=== PATIENT | female | born 1965 | race Caucasian/White ===

== ENCOUNTER 2019-09-09 11:18 | Emergency (ER) | payer OTHER, SELFPAY ==
--- NOTE | ~2019-09-09 | XR_ITS ---
XR finger 4th LT min 2V DATE: 09/09/2019 12:02 INDICATION: Distal tip of digit, with ami. TECHNIQUE: 4 views COMPARISON: None FINDINGS: There is a soft tissue laceration at the distal lateral aspect of the digit. No radiopaque soft tissue foreign body is noted. No fracture, dislocation, periosteal reaction or bone destruction. IMPRESSION: Small distal soft tissue laceration Reviewed, dictated and finalized at location A.
[2019-09-09 11:23] VITALS: BP 124/84; PULSE 76; RESP 18; TEMP 36.4; O2SAT 97
[2019-09-09] MEDS: TETANUS,DIPHTHERIA,AC PERTUSSIS ADULT (0.5 ML) BOOSTRIX IM (11:51)
--- NOTE | 2019-09-09 12:07 | ED.GENADULT ---
HPI - General Adult General Chief complaint: Wound/Laceration <EZRA Birch Last Filed: 09/09/19 13:06> Stated complaint: left finger lac <EZRA Birch Filed: 09/09/19 13:06> Time Seen by Provider: 09/09/19 11:25 <EZRA Birch Last Filed: 09/09/19 13:06> Source: patient <EZRA Birch Filed: 09/09/19 13:06> Mode of arrival: ambulatory <EZRA Birch Filed: 09/09/19 13:06> Limitations: no limitations <EZRA Birch Filed: 09/09/19 13:06> History of Present Illness HPI narrative: Patient is a 54-year-old female who presents with laceration of the left distal ring finger that occurred while using a hedge tremor patient notes her tetanus is not up-to-date notes mild aching pain worse with touch and activity denies radicular symptoms or paresthesias presents per private vehicle right after the injury occurred has not had anything for pain <EZRA Birch Last Filed: 09/09/19 13:06> Related Data Home medications: Home Medications Medication Instructions Recorded Confirmed multivitamin 1 tablet PO DAILY 07/12/19 07/12/19 omeprazole 10 mg PO DAILY 09/09/19 <EZRA Birch Last Filed: 09/09/19 13:06> Allergies/adverse reactions: Allergies Allergy/AdvReac Type Severity Reaction Status Date / Time morphine Allergy Unknown itchy hives Verified 09/09/19 11:33 Penicillins Allergy Unknown itchy hives Verified 09/09/19 11:33 <EZRA Birch Last Filed: 09/09/19 13:06> Review of Systems Review of Systems: Narrative: CONSTITUTIONAL: Denies fever, chills, or sweats. EYES: Denies redness, or discharge. ENT: Denies rhinorrhea, congestion, sore throat, or otalgia RESPIRATORY: Denies cough or dyspnea. SKIN: positive for laceration and swelling MUSCULOSKELETAL: Positive for finger pain NEUROLOGIC: Denies numbness or tingling <EZRA Birch Last Filed: 09/09/19 13:06> [facility] Family History Family History: Family History (Updated 11/29/15 @ 23:19 by DOCTOR UNKNOWN) Father Hypertension Family history of diabetes mellitus in first degree relative Family history of malignant neoplasm of brain Mother Family history of lung cancer <Carlos Lucero PA-C - Last Filed: 09/09/19 13:06> Social History Social History: Social History Smoking status: Never smoker Alcohol intake: never Substance use: never Substance use type: does not use Gender identity (if verbalized by the patient): Female <Carlos Lucero PA-C - Last Filed: 09/09/19 13:06> Exam Narrative: Exam Narrative: GENERAL: Well-appearing, well-nourished, and in no acute distress. HEAD: Normocephalic, atraumatic. EYES: PERRLA and EOMI. EXTREMITIES: Normal range of motion. No edema. Patient with irregular laceration of the palmar aspect of the distal left ring finger SKIN: Warm, dry, no rash. NEURO: No focal deficits. Alert and oriented x3. Cranial nerves II through XII grossly intact PSYCH: Normal mood and affect. <Carlos Lucero PA-C - Last Filed: 09/09/19 13:06> Course Vital Signs Vital signs: Vital Signs Temperature 97.5 F L 09/09/19 11:23 Pulse Rate 76 09/09/19 11:23 Respiratory Rate 18 09/09/19 11:23 Blood Pressure 124/84 09/09/19 11:23 Pulse Oximetry 97 09/09/19 11:23 Temperature 97.5 F L 09/09/19 11:23 Pulse Rate 76 09/09/19 11:23 Respiratory Rate 18 09/09/19 11:23 Blood Pressure 124/84 09/09/19 11:23 Pulse Oximetry 97 09/09/19 11:23 <Carlos Lucero PA-C - Last Filed: 09/09/19 13:06> Vital Signs Temperature 97.5 F L 09/09/19 11:23 Pulse Rate 76 09/09/19 11:23 Respiratory Rate 18 09/09/19 11:23 Blood Pressure 124/84 09/09/19 11:23 Pulse Oximetry 97 09/09/19 11:23 Temperature 97.5 F L 09/09/19 11:23 Pulse Rat
== END 2019-09-09 13:10 | disposition home or self-care (01) ==
PROVIDERS: Emergency Provider Emergency Medicine; PCP Family Medicine
DX: S61.215A Laceration without foreign body of left ring finger without damage to nail, initial encounter (principal); W29.3XXA Contact with powered garden and outdoor hand tools and machinery, initial encounter; Z23 Encounter for immunization
CPT/HCPCS: 12001; 73140; 90471; 90715; 99283

== ENCOUNTER 2020-02-01 15:03 | Outpatient (CLI) | payer OTHER, SELFPAY ==
--- NOTE | ~2020-02-01 | US_ITS ---
EXAMINATION: US soft tissue head and neck DATE: 02/01/2020 15:30 INDICATION: Left neck mass. TECHNIQUE: Multiple grayscale and Doppler ultrasound images of the neck were obtained. COMPARISON: None FINDINGS: There is a normal subcutaneous lymph node in left posterior neck in the patient's area of c oncern. IMPRESSION: 1. Normal subcutaneous lymph node in left posterior neck in the patient's area of concern. Reviewed, dictated and finalized at location A.
== END 2020-02-01 15:04 | disposition home or self-care (01) ==
PROVIDERS: PCP Family Medicine; Visit Provider Physician Assistant
DX: R22.1 Localized swelling, mass and lump, neck (principal)
CPT/HCPCS: 76536

== ENCOUNTER → 2020-10-09 10:45 | Outpatient (CLI) | payer OTHER, SELFPAY ==
--- NOTE | ~2020-10-09 | MM_ITS ---
EXAMINATION: MM screening deborah BI w krupa HISTORY: Screening mammogram TECHNIQUE: Craniocaudal and mediolateral oblique 3-D tomosynthesis images were obtained and synthetic 2-D images were generated. CAD analysis was submitted and interpreted. COMPARISON: 07/29/2016, 05/30/2015 bilateral digital screening mammogram examinations BREAST PARENCHYMAL COMPOSITION: There are scattered areas of fibroglandular density. FINDINGS: Stable mild fibroglandular asymmetry. Scattered bilateral benign calcifications. 3.5 x 4.5 mm circumscribed opacity in the lower outer right breast at mid to posterior depth. There i s no evidence of suspicious mass, calcification, or architectural distortion to suggest malignancy in either breast. There has been no suspicious interval change. IMPRESSION: 1. No mammographic evidence of malignancy. 2. Recommend routine screening mammography in one year. BI-RADS Category 2: Benign finding(s). Reviewed, dictated and finalized at location A.
== END ==
PROVIDERS: Visit Provider Obstetrics & Gynecology
DX: Z12.31 Encounter for screening mammogram for malignant neoplasm of breast (principal)
CPT/HCPCS: 77063; 77067

== ENCOUNTER 2021-04-15 12:21 | Emergency (ER) | payer OTHER, SELFPAY ==
--- NOTE | ~2021-04-15 | XR_ITS ---
EXAMINATION: XR foot LT min 3V EXAM DATE: 04/15/2021 12:40 INDICATION: trauma yesterday/lateral heel pain. Initial encounter. TECHNIQUE: Left foot dorsoplantar, lateral and oblique projections obtained and reviewed. There is n o prior study for comparison. FINDINGS: Left metatarsal bones unremarkable. There are no acute fractures or dislocations identifi ed. There is no subcutaneous gas. The soft tissue is unremarkable. There are no radiopaque foreig n bodies. IMPRESSION: XR foot LT min 3V exam without acute osseous findings. Reviewed, dictated and finalized at location B. 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
[2021-04-15 12:30] VITALS: BP 129/93; PULSE 103; RESP 18; TEMP 37.1; O2SAT 98
--- NOTE | 2021-04-15 12:38 | ED.LOWEXIN ---
HPI - Extremity Injury (Lower) General Chief Complaint: Upper Respiratory Infection Stated Complaint: Body Aches,Headache,Lt Foot Pain Time Seen by Provider: 04/15/21 12:32 Source: family and RN notes reviewed Mode of arrival: ambulatory Limitations: no limitations History of Present Illness HPI Narrative: Paola is a 55-year-old female patient who ambulated into the [facility] with complaint of left heel pain. Patient states she was walking her 2 dogs yesterday and a stray dog came over. Patient states she was kicking at the other dog to leave her alone. Patient states she was unable to walk until this morning. Patient also has chills, body aches, and joint pain. This started yesterday. Patient has been taking Aleve and NyQuil. Patient states her daughter was diagnosed with influenza A on Wednesday Related Data Home Medications Medication Instructions Recorded Confirmed estradiol [Divigel] 1 DAILY 04/15/21 Allergies Allergy/AdvReac Type Severity Reaction Status Date / Time morphine Allergy Unknown itchy hives Verified 04/15/21 12:35 Penicillins Allergy Unknown itchy hives Verified 04/15/21 12:35 Review of Systems Review of Systems: CONSTITUTIONAL: = body aches, fever, chills, or sweats. EYES: Denies visual changes, redness, or discharge. ENT: Denies rhinorrhea, congestion, sore throat, or otalgia. CARDIOVASCULAR: Denies chest pain, palpitations, or edema. RESPIRATORY: Denies cough or dyspnea. GASTROINTESTINAL: Denies abdominal pain, nausea, vomiting, or diarrhea. GENITOURINARY: Denies dysuria or hematuria. SKIN: Denies rash, itching, or wounds. MUSCULOSKELETAL: Denies back pain, + left heel pain, or myalgia. NEUROLOGIC: Denies headache, numbness, tingling, or weakness. PSYCH: Denies depression or anxiety. All systems reviewed & are unremarkable except as noted in HPI and below PMFSH Past Medical History Medical History Constipation Heartburn Hot flashes Rash Surgical History Surgical History History of bladder surgery History of partial hysterectomy Family History Family History Father Hypertension Family history of diabetes mellitus in first degree relative Family history of malignant neoplasm of brain Mother Family history of lung cancer Social History Social History Smoking status: Never smoker Alcohol intake: current Substance use: never Substance use type: does not use 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 Gender identity (if verbalized by the patient): Female Comments At time of signature, I have reviewed and agree with nursing past medical, surgical, social and family history unless otherwise noted. Please see nursing chart for further information. There is no relevant family history pertinent to the presenting complaint Exam Narrative: GENERAL: Well-appearing, well-nourished, and in no acute distress. HEAD: Normocephalic, atraumatic. EYES: EOMI. No redness or drainage. Conjunctivae normal. ENT: Mucous membranes pink and moist. Nares clear. No rhinorrhea. TMs normal bilaterally. Throat normal. Uvula midline. NECK: Normal AROM. Supple. No lymphadenopathy. CHEST: No respiratory distress. Clear to auscultation. HEART: Regular rate and rhythm. No murmur appreciated. Normal peripheral pulses. ABDOMEN: Soft, nontender, nondistended, normal active bowel sounds. MUSCULOSKELETAL: No bony tenderness. EXTREMITIES: Normal range of motion. 1+ edema to BLE. SKIN: Warm, dry, no rash. Capillary refill normal. Normal skin turgor. NEURO: No focal deficits. Alert and oriented x3. Gait steady. PSYCH: Normal affect. No signs of depression or anxiety. Course Vital Signs Vital signs: Vital Signs Temperature 37.1 C 04/15/21 12:30 Pulse Rate
== END 2021-04-15 13:03 | disposition home or self-care (01) ==
PROVIDERS: Emergency Provider Nurse Practitioner Family; PCP Family Medicine
DX: J11.1 Influenza due to unidentified influenza virus with other respiratory manifestations (principal); S90.32XA Contusion of left foot, initial encounter; X58.XXXA Exposure to other specified factors, initial encounter; R12 Heartburn
CPT/HCPCS: 73630; 87804; 99213; G0463

== ENCOUNTER 2021-05-12 01:54 | Day surgery (SDC) | payer OTHER, SELFPAY ==
[2021-04-21 13:36] VITALS: BMI 36.3
--- NOTE | 2021-04-21 13:43 | PC.NURSE ---
Addendum entered by Renee Christianson RN 05/05/21 13:42: PT TO ARRIVE AT 0600 ON 05/12/21 FOR OR AT 0730. TO STOP VITAMINS/SUPPLEMENTS 05/08/21. Original Note: Report to the Outpatient Waiting Room, entrance under the green pavilion located off [facility], at time __1000 on date _04/24/21 . OR Time: ___1200 . - You and your visitor will be asked a series of questions to screen for COVID 19 for your protection. - A mask is required within the hospital. - Only one visitor is allowed at this time. Patient visitors will be guided where to wait when not with patient. Preoperative COVID Testing Requirements: No COVID Test needed if: (proof is required; if not received patient will have Rapid Test prior to entry) - Patient has received COVID Vaccine at least 14 days prior to procedure date or - Patient has positive COVID test result within last 90 days of surgery date. COVID Test needed if above criteria is not met If not COVID vaccinated a COVID test must be conducted within 72 hours of surgery and patient is asked to isolate self from time of testing until procedure. You will go to the [facility] for your COVID testing. The [facility] [facility] is located at the corner of [address] from [facility]. You will only be called if COVID results are positive and your surgeon may reschedule your elective surgery date. Patients may have clear liquids (water, carbonated beverages, clear teas, apple juice) until 3 hours prior to surgery with a maximum of 20 ounces. - No food from midnight until time of surgery - Infants may have breast milk until 4 hours before surgery, formula 6 hours prior to surgery. - Children will be allowed to drink immediately following surgery. If applicable, please bring a bottle or sippy cup to assist with drinking. Juice, water, soda, and popsicles are readily available. For infants on formula, please bring formula the day of surgery. Pacifiers are allowed. Take the following medications with a SIP of water the morning of surgery: __N/A Medications to discontinue per physician __ALL VITAMINS & SUPPLEMENTS OF TODAY Date to take last dose____04/21/21 Please no make-up, nail nepali, hairspray, perfume, deodorant, or body powder the day of surgery. No jewelry (including any body piercings) or valuables the day of surgery, leave them at home. Please take a shower or bath the night before, or the morning of, surgery with an antibacterial soap. Wear comfortable, loose fitting clothing. Children are encouraged to wear pajamas. - Jewelry must be removed prior to entering the operating room. Rings and piercings that are not removed may be cut off. - The hospital will not accept responsibility for valuables. - Please leave all valuables, including medications, at home the day of surgery. If you are going home after surgery, a licensed solo truck driver must drive you home. - NO public transportation without another adult. - We recommend that an adult stay with you for 24 hours following discharge. - We also recommend that you do not drive, make important decision, drink alcoholic beverages, or take any drugs that were not prescribed by your health care provider for at least 24 hours after your discharge time. For Pediatric surgeries, we recommend two adults accompany the child home (only one inside the building at this time). Follow any additional instructions given to you from your surgeon. [facility] AM OF SURGERY Telephone instructions given to ____PT and asked if any additional questions and then verbalized understanding. Patient advised to call surgeon office or pre surgery nurse liaison [phone] if any additional questions.
--- NOTE | 2021-05-05 13:40 | PC.NURSE ---
Pt denies any medication changes since initial interview. States symptoms of influenza A have resolved. Currently has an inflamed tendon on her left heel due to breaking up a dog attack. Pt denies being bitten or having any open wounds. New instructions reviewed with pt. Pt denies further questions at this time.
[2021-05-12] VITALS (8 sets, daily range): BP systolic 117–145; BP diastolic 65–86; PULSE 49–78; RESP 12–14; TEMP 36.1; O2SAT 98–100
[2021-05-12] MEDS: ACETAMINOPHEN 500 MG TABLET 1000 MG PO (06:47)
[2021-05-12] MEDS: LACTATED RINGERS 1,000 ML 30 ML IV CONT ×2 (07:00→08:38)
[2021-05-12] MEDS: KETOROLAC 15 MG/ML VIAL (*BKC) IV PUSH (07:04)
--- NOTE | 2021-05-12 07:08 | WPDANESEPPF ---
Anes - Initial Pre Proc Eval Procedure: Operation Date: 05/12/21 07:30 Proposed Procedures p Open Umbilical Hernia Repair With Mesh - Germaine Wade MD Date/Time: 05/12/21 07:08 Surgeon: Germaine Wade MD Pre Op Diagnosis: umb hernia Patient Data Age: 55 Gender: F Height: 1.68 m Weight: 104 kg Last Vital Signs Temp 36.1 C L 05/12/21 06:59 Pulse 78 05/12/21 06:59 BP 131/72 05/12/21 06:59 Pulse Ox 98 05/12/21 06:59 Allergies Allergy/AdvReac Type Severity Reaction Status Date / Time morphine Allergy Unknown itchy hives Verified 05/12/21 06:23 Penicillins Allergy Unknown itchy hives Verified 05/12/21 06:23 Home Medications Medication Instructions Recorded Confirmed Type estradiol [Divigel] 1 packet DAILY 04/15/21 05/12/21 History glucosamine-chondroitin [Osteo 1 tablet PO QAM 04/21/21 05/12/21 History Bi-Flex] multivitamin [Multi-Vitamin] 1 tablet PO DAILY 04/21/21 05/12/21 History multivitamin with minerals 1 tablet PO DAILY 04/21/21 05/12/21 History [Hair,Skin and Nails] omeprazole 20 mg PO DAILY 04/21/21 05/12/21 History Patient hx anesthesia problems: none Family hx anesthesia problems: none Results Review: All pre-operative results and documents have been reviewed as part of the pre-operative evaluation. 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 Informed Consent: The patient's anesthetic plan and its attendant risks and benefits were discussed with the patient/family/POA. Questions were solicited and answers provided to the satisfaction of the patient/family/POA.
--- NOTE | 2021-05-12 07:22 | PM.IMHP ---
H&P: HPI History of Present Illness Date/Time: 05/12/21 07:22 Patient reports a two year history of supra-umbilical bulging with recent development of associated pain- worse to palpation, with heavy lifting, and bending at the waste. Chief Complaint: umbilical hernia Review of Systems Review of Systems: All systems reviewed & are unremarkable except as noted in HPI and below PMFSH Past Medical History Medical History Constipation Heartburn Hot flashes Rash Surgical History Surgical History History of bladder surgery History of partial hysterectomy Family History Family History Father Hypertension Family history of diabetes mellitus in first degree relative Family history of malignant neoplasm of brain Mother Family history of lung cancer Social History Social History Smoking status: Never smoker Second hand tobacco smoke exposure: No Alcohol intake: current Substance use: never Substance use type: does not use 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: with family 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 Gender identity (if verbalized by the patient): Female Spiritual care concerns: No Meds Home Medications and Allergies Home Medications Medication Instructions Recorded Confirmed Type estradiol [Divigel] 1 packet DAILY 04/15/21 05/12/21 History glucosamine-chondroitin [Osteo 1 tablet PO QAM 04/21/21 05/12/21 History Bi-Flex] multivitamin [Multi-Vitamin] 1 tablet PO DAILY 04/21/21 05/12/21 History multivitamin with minerals 1 tablet PO DAILY 04/21/21 05/12/21 History [Hair,Skin and Nails] omeprazole 20 mg PO DAILY 04/21/21 05/12/21 History Allergies Allergy/AdvReac Type Severity Reaction Status Date / Time morphine Allergy Unknown itchy hives Verified 05/12/21 06:23 Penicillins Allergy Unknown itchy hives Verified 05/12/21 06:23 Vital Signs Vital Signs - 24 hr 05/12/21 06:59 Temperature 36.1 C L Pulse Rate 78 Blood Pressure 131/72 Pulse Oximetry 98 Exam Const: General: cooperative, comfortable and no acute distress Nutritional Appearance: obese Orientation/consciousness: patient oriented x3 Resp: Auscultation: clear to auscultation bilaterally Cardio: Rate: regular rate Rhythm: regular rhythm GI: Inspection: normal to inspection and distended GI Palp: Yes Soft to palpation, Yes Tenderness to palpation present (GI), No Guarding due to palpation present (GI) and No Rigid due to palpation Other: supraumbilical hernia - moderate, reducible Assessment and Plan Assessment and plan (1) Umbilical hernia: Qualifiers: Obstruction and gangrene presence: without obstruction or gangrene Qualified Code(s): K42.9 - Umbilical hernia without obstruction or gangrene Code(s): K42.9 - Umbilical hernia without obstruction or gangrene Status: Acute Assessment and Plan: will setup for repair c mesh (2) BMI 36.0-36.9,adult: Code(s): Z68.36 - Body mass index [BMI] 36.0-36.9, adult Status: Acute Assessment and Plan: increased surgical risk, lifestyle and dietary modifications
--- NOTE | 2021-05-12 07:25 | WPDHPUPDATE1 ---
History and Physical Update Update Date/Time: 05/12/21 07:25 History and Physical has been reviewed, including an updated exam of the patient. There are NO changes in the patient's condition. Risks, benefits, and alternatives have been discussed and questions answered. Patient agrees to proceed with procedure.
[2021-05-12] MEDS: ceFAZolin 2 GM/D5W 50 ML 2 GM/50 ML BAG IVPB (07:32)
[2021-05-12] MEDS: BUPIVACAINE/EPINEPHRINE 0.5% 10 ML VIAL 30 ML INFILTRATE (07:32)
--- NOTE | 2021-05-12 08:44 | W.PM.PROC2 ---
Procedure Note - Detailed Date of Procedure 05/12/21 Pre-op Diagnosis incarcerated umbilical hernia Post-op Diagnosis same Procedure Performed repair of incarcerated umbilical hernia with 4.3 cm Ventralex patch in the underlay position Surgeon Germaine Wade MD Anesthesia general Indications 55-year-old female presenting to the office with a moderate-sized incarcerated umbilical hernia. The patient reports that the hernia has been slowly enlarging and is now quite symptomatic. Findings Incarcerated umbilical hernia with preperitoneal fat and omentum Description of Procedure The patient was taken to the operating room placed in the supine position. After adequate induction of general anesthesia, the patient was prepped and draped in the normal sterile fashion. A time-out was then done to verify the patient's identity, as well as the procedure being performed. I began by localizing the area around the umbilicus. I then made a curvilinear incision in the infraumbilical fold. This was taken down to level fascia. I then was able to bluntly dissect around the umbilicus. I then carefully dissected the umbilicus off the underlying fascia. I then noted a moderatel defect with incarcerated omentum and preperitoneal fat. I was able to mobilize the incarcerated tissue and reduce it back into the abdominal cavity. This left an approximately 2 cm defect. I then placed a 4.3 cm round piece of ventralex mesh in the underlay position. This was noted to have good, wide local coverage of the defect. I then closed this defect primarily with interrupted 0 Ethibond suture over the underlay mesh repair. I then reapproximated the umbilicus to the fascia with a 3 0 Vicryl U-stitch. The subcutaneous tissue was then closed with 3 0 Vicryl suture. The skin was closed with 4 0 Monocryl subcuticular suture. Dermabond was then placed on the wound. The patient tolerated the procedure well was extubated in the operating room postop. She will be transferred to the recovery room in stable condition. Implants 4.3 cm Ventralex patch in the underlay position Estimated Blood Loss 5 Drains No Packing No Pathology none sent Complications No immediate complications Condition stable Disposition PACU
[2021-05-12] MEDS: fentaNYL CITRATE INJ (*CRX) 100 MCG/2 ML VIAL 25 MCG IV PUSH ×4 (09:08→09:24)
[2021-05-12] MEDS: oxyCODONE HCL (*CRX) 5 MG TAB IR PO (09:55)
== END 2021-05-12 10:50 | disposition home or self-care (01) ==
PROVIDERS: PCP Family Medicine; Visit Provider Surgery
PROC: (CPT 49587; principal; 2021-05-12 07:30)
DX: K42.0 Umbilical hernia with obstruction, without gangrene (principal); E66.9 Obesity, unspecified; Z68.37 Body mass index [BMI] 37.0-37.9, adult
CPT/HCPCS: 49587; A9270; J0330; J0690; J1885; J2250; J2405; J2704; J3010; J7120

== ENCOUNTER → 2021-10-20 15:12 | Outpatient (CLI) | payer OTHER, SELFPAY ==
--- NOTE | ~2021-10-20 | XR_ITS ---
XR elbow LT min 3V DATE: 10/20/2021 15:41 INDICATION: Left elbow pain TECHNIQUE: 4 views COMPARISON: None FINDINGS: No fracture or dislocation or joint effusion. No periosteal reaction or bone destruction. IMPRESSION: Negative Reviewed, dictated and finalized at location A. IMPRESSION: Negative
--- NOTE | ~2021-10-20 | XR_ITS ---
XR elbow RT min 3V DATE: 10/20/2021 15:40 INDICATION: Right elbow pain TECHNIQUE: 4 views COMPARISON: None FINDINGS: No fracture or dislocation, periosteal reaction or bone destruction. No joint effusion. IMPRESSION: Negative Reviewed, dictated and finalized at location A. IMPRESSION: Negative
== END ==
PROVIDERS: PCP Family Medicine; Visit Provider Physician Assistant
DX: M25.521 Pain in right elbow (principal); M25.522 Pain in left elbow
CPT/HCPCS: 73080

== ENCOUNTER 2021-11-05 10:23 | Emergency (ER) | payer OTHER, SELFPAY ==
--- NOTE | ~2021-11-05 | XR_ITS ---
EXAMINATION: XR knee RT min 4V DATE: 11/05/2021 11:03 INDICATION: Right knee pain TECHNIQUE: Four views of the right knee were obtained. COMPARISON: None. FINDINGS: Alignment is normal. No fracture or osteochondral lesion. There is mild tricompartmental os teoarthritis characterized by tiny marginal osteophytes. No joint effusion/synovitis. Soft tissues a re unremarkable. IMPRESSION: 1. No acute osseous abnormality. Reviewed, dictated and finalized at location B.
[2021-11-05 10:35] VITALS: BP 139/80; PULSE 75; RESP 18; TEMP 36.3; O2SAT 99
--- NOTE | 2021-11-05 10:41 | ED.LOWEXIN ---
HPI - Extremity Injury (Lower) General Chief Complaint: Extremity Injury, Lower Stated Complaint: rt knee injury Time Seen by Provider: 11/05/21 11:18 Source: patient and RN notes reviewed Mode of arrival: ambulatory Limitations: no limitations History of Present Illness HPI Narrative: 56-year-old female presents to the [facility] with complaints of right knee pain. states that she fell (ground level) in the mud/garden yesterday. Patient reports a twisting injury of the right knee. No bruising. No swelling noted. No fluctuance/effusion. Onset (ago): day(s) (1) Related Data Home Medications Medication Instructions Recorded Confirmed glucosamine-chondroitin 250 mg-200 1 tablet PO QAM 04/21/21 11/05/21 mg tablet (Osteo Bi-Flex) multivitamin 1 tablet PO DAILY 04/21/21 11/05/21 omeprazole 20 mg capsule,delayed 20 mg PO DAILY 04/21/21 11/05/21 release Allergies Allergy/AdvReac Type Severity Reaction Status Date / Time morphine Allergy Unknown itchy hives Verified 11/05/21 10:42 Penicillins Allergy Unknown itchy hives Verified 11/05/21 10:42 Review of Systems Review of Systems: All systems reviewed & are unremarkable except as noted in HPI and below Constitutional: Constitutional: Reports no additional constitutional complaints, Denies chills and Denies fever(s) Eyes: Eyes: Reports no additional eye complaints ENT: Reports system reviewed and no additional complaints, except as documented Cardiovascular: Cardiovascular: Reports no additional cardiovascular complaints Respiratory: Respiratory: Reports no additional respiratory complaints Gastrointestinal: Gastrointestinal: Reports no additional gastrointestinal complaints Musculoskeletal: Musculoskeletal: Reports as per HPI and Reports arthralgias (right knee) Integumentary/Breasts: Skin/Breast: Reports system reviewed and no additional complaints, except as docu Neurologic: Reports system reviewed and no additional complaints, except as documented Psychiatric: Psychiatric: Reports no additional psychiatric complaints Allergic/Immunologic: Allergic/Immunologic: Reports no additional allergic/immunologic complaints PMFSH Past Medical History Medical History Constipation Heartburn Hot flashes Rash Surgical History Surgical History H/O umbilical hernia repair 05/12/21 w mesh History of bladder surgery History of partial hysterectomy Family History Family History Father Hypertension Family history of diabetes mellitus in first degree relative Family history of malignant neoplasm of brain Mother Family history of lung cancer Social History Social History Second hand tobacco smoke exposure: No Alcohol intake: current Substance use: never Substance use type: does not use 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 There is no relevant family history pertinent to the patient complaint. Exam Const: General: healthy appearing, no acute distress and alert Nutritional Appearance: well nourished Orientation/consciousness: patient oriented x3 Limitations: no limitations HENMT: Head: normal to inspection Ears: external ears normal Eyes: General: appearance normal, both eyes and all related structures Pupils: Equal, round and reactive pupils present Neck: Neck: normal visual inspection, no lymphadenopathy and no meningeal signs Chest: Chest palpation & inspection: normal inspection of the chest Resp: Effort & Inspection
== END 2021-11-05 11:28 | disposition home or self-care (01) ==
PROVIDERS: Emergency Provider Nurse Practitioner; PCP Family Medicine
DX: S83.91XA Sprain of unspecified site of right knee, initial encounter (principal); W19.XXXA Unspecified fall, initial encounter; M17.11 Unilateral primary osteoarthritis, right knee; R12 Heartburn
CPT/HCPCS: 73564; 99213; G0463

== ENCOUNTER → 2021-12-05 15:19 | Outpatient (CLI) | payer OTHER, SELFPAY ==
--- NOTE | ~2021-12-05 | MM_ITS ---
EXAMINATION: MM screening [facility] BI w krupa HISTORY: Screening TECHNIQUE: Craniocaudal and mediolateral oblique 3-D tomosynthesis images were obtained and synthetic 2-D images were generated. CAD analysis was submitted and interpreted. COMPARISON: Comparison to multiple prior studies sequentially, with oldest reviewed study dated 05/2009. BREAST PARENCHYMAL COMPOSITION: There are scattered areas of fibroglandular density. FINDINGS: There is no evidence of suspicious mass, calcification, or architectural distortion to sugg est malignancy in either breast. There has been no suspicious interval change. IMPRESSION: 1. No mammographic evidence of malignancy. 2. Recommend routine screening mammography in one year. BI-RADS Category 1: Negative Reviewed, dictated and finalized at location A.
== END ==
PROVIDERS: PCP Family Medicine; Visit Provider Family Medicine
DX: Z12.31 Encounter for screening mammogram for malignant neoplasm of breast (principal)
CPT/HCPCS: 77063; 77067

== ENCOUNTER → 2022-06-11 14:38 | Outpatient (CLI) | payer OTHER, SELFPAY ==
--- NOTE | ~2022-06-11 | MR_ITS ---
EXAMINATION: MR foot LT wo con DATE: 06/11/2022 15:13 INDICATION: Lateral left midfoot pain with degenerative joint disease TECHNIQUE: Magnetic resonance imaging (MRI) of the left mid/hindfoot was performed without intravenou s contrast. Sequences included sagittal, coronal, and axial proton-density weighted fast spin echo wi thout and with fat saturation. COMPARISON: None. FINDINGS: Medial ankle ligaments: Deep and superficial deltoid ligaments as well as the spring ligament are normal. Lateral ankle ligaments: The anterior and posterior inferior tibiofibular ligaments are normal. The anterior talofibular, calc aneofibular and posterior talofibular ligaments are normal. Tendons: Tiny enthesophytes at the calcaneal insertion of the otherwise normal Achilles tendon. There is mild increased fluid signal along the peroneus longus tendon beginning at the level of the distal calcaneu s and extending across the peroneal sulcus at the plantar aspect of the cuboid where the tendon appea rs mildly thickened consistent with mild tenosynovitis and mild tendinopathy without discrete tear. T here is mild tendinopathy of the peroneus brevis tendon with longitudinal split tearing seen at the l evel of the distal tip of the fibula extending at least 3.5 cm distally. The tibialis anterior and ex tensor hallucis longus and extensor digitorum longus tendons are normal. The tibialis posterior, flex or digitorum longus and flexor hallucis longus tendons are normal. Plantar fascia: There is thickening and mild increased signal of the plantar aponeurosis. There is mild marrow edema associated with a small plantar calcaneal spur at its calcaneal origin. Findings consistent with mild acute on chronic plantar fasciitis/enthesitis. Bones/other: Bone alignment is normal. No fracture or pathologic marrow replacing process. Minimal to mild osteoar thritis at the tarsal metatarsal joints. Lisfranc ligament complex is normal. Fluid: Physiologic amount fluid in the joint spaces. No other abnormal fluid collections. IMPRESSION: 1. Cuboid marlon lesion with mild tenosynovitis and tendinopathy of the peroneus longus tendon center ed at the peroneal sulcus of the cuboid. 2. Mild peroneus brevis tendinopathy with longitudinal split tearing extending short distance distal from the level of the tip of the lateral malleolus. 3. Mild acute on chronic plantar fascitis/enthesitis. Reviewed, dictated and finalized at location A. 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 Cuboid marlon lesion with mild tenosynovitis and tendinopathy of the peroneu s longus tendon centered at the peroneal sulcus of the cuboid. 2. Mild peroneus brevis tendinopathy with longitudinal split tearing extending short distance distal from the level of the tip of the lateral malleolus. 3. Mild acute on chronic plantar fascitis/enthesitis.
== END ==
PROVIDERS: PCP Family Medicine; Visit Provider Podiatrist Foot & Ankle Surgery
DX: M19.079 Primary osteoarthritis, unspecified ankle and foot (principal); M65.9 Synovitis and tenosynovitis, unspecified; M77.52 Other enthesopathy of left foot and ankle
CPT/HCPCS: 73718

== ENCOUNTER 2022-07-31 00:50 | Day surgery (SDC) | payer OTHER, SELFPAY ==
[2022-07-21 13:39] VITALS: BMI 35.6
--- NOTE | 2022-07-21 13:54 | PC.NURSE ---
Report to the Outpatient Waiting Room, entrance under the green pavilion located off [facility], at time _0630am on date _07/31/22 . Planned Procedure Time: _0830am . Time changes happen often and if your time is changed the preop area will call you the afternoon before. - You and your visitor will be asked to self-screen and do not enter if you have any COVID symptoms. - Only one visitor is requested with a max of two and NO children visitors are allowed at this time. - The patient visitor may be requested to leave or wait in car when not with patient due to distancing restrictions. - A mask is optional within the hospital at this tme. Patients may have clear liquids (water, carbonated beverages, clear teas, apple juice) until 3 hours prior to surgery with a maximum of 20 ounces. - No food from midnight until time of surgery Take the following medications with a SIP of water the morning of surgery: _no meds the morning of surgery DO NOT STOP ANY OF YOUR OTHER PRESCRIPTION MEDICATIONS PRIOR TO SURGERY ?EXCEPT THE FOLLOWING Medications to discontinue per physician ____stop multivitamin 12/28/22; Ask Dr. Rincon Re: stopping aleve. use tylenol for pain control if needed Date to take last dose_n/a Please no make-up, nail armenian, hairspray, perfume, deodorant, or body powder the day of surgery. No jewelry (including any body piercings) or valuables the day of surgery, leave them at home. Please take a shower or bath the night before, or the morning of, surgery with an antibacterial soap. Wear comfortable, loose fitting clothing. - Jewelry must be removed prior to entering the operating room. Rings and piercings that are not removed may be cut off. - The hospital will not accept responsibility for valuables. - Please leave all valuables, including medications, at home the day of surgery. If you are going home after surgery, a licensed tanker truck driver must drive you home. - NO public transportation without another adult if you receive anesthesia. - We recommend that an adult stay with you for 24 hours following discharge. - We also recommend that you do not drive, make important decision, drink alcoholic beverages, or take any drugs that were not prescribed by your health care provider for at least 24 hours after your discharge time. Follow any additional instructions given to you from your surgeon. If you or anyone in your household have experienced Covid symptoms in the past week, please notify your surgeon or the nurse liaison at the phone number below for possible testing. Telephone instructions given to _Rosmery and asked if any additional questions and then verbalized understanding. Patient advised to call surgeon office or pre surgery nurse liaison [phone] if any additional questions.
[2022-07-31] VITALS (8 sets, daily range): BP systolic 116–147; BP diastolic 74–103; PULSE 56–81; RESP 10–20; TEMP 36.5–36.7; O2SAT 98–100
--- NOTE | 2022-07-31 07:10 | WPDHPUPDATE1 ---
History and Physical Update Update Date/Time: 07/31/22 07:10 History and Physical has been reviewed, including an updated exam of the patient. There are NO changes in the patient's condition. Risks, benefits, and alternatives have been discussed and questions answered. Patient agrees to proceed with procedure.
[2022-07-31] MEDS: LACTATED RINGERS 1,000 ML 30 ML IV CONT ×2 (07:30→10:23)
--- NOTE | 2022-07-31 07:40 | P.PNAN_ITS ---
Anes - Initial Pre Proc Eval Procedure: Operation Date: 07/31/22 08:30 Proposed Procedures p Primary Repair of Peroneal Tendons Left Ankle, Peroneal Tenosynovectomy Left Ankle - Anshu Rincon JR, MD Date/Time: 07/31/22 07:40 Surgeon: Anshu Rincon JR, MD Pre Op Diagnosis: Peroneal Tendonopathy Lt Ankle Patient Data Age: 56 Gender: F Height: 1.68 m Weight: 100 kg Allergies Allergy/AdvReac Type Severity Reaction Status Date / Time morphine Allergy Unknown itchy hives Verified 07/21/22 14:00 Penicillins Allergy Unknown itchy hives Verified 07/21/22 14:00 Home Medications Medication Instructions Recorded Confirmed Type multivitamin 1 tablet PO DAILY 04/21/21 07/21/22 History omeprazole 20 mg capsule,delayed 20 mg PO DAILY 04/21/21 07/21/22 History release naproxen 500 mg tablet 500 mg PO BID #120 tabs 12/24/21 07/21/22 Rx diclofenac sodium 1 % topical gel 2 g topical QID PRN Pain 07/21/22 07/21/22 History (Voltaren Arthritis Pain) Patient hx anesthesia problems: none Family hx anesthesia problems: none Results Review: All pre-operative results and documents have been reviewed as part of the pre- operative evaluation. [facility] Past Medical History Medical History Constipation Heartburn Hot flashes Rash Surgical History Surgical History H/O umbilical hernia repair 05/12/21 w mesh History of bladder surgery (~03/2005) History of bladder surgery (~09/2015) History of partial hysterectomy (~08/2008) History of tooth extraction Family History Family History Father Hypertension Family history of diabetes mellitus in first degree relative Family history of malignant neoplasm of brain Mother Family history of lung cancer Social History Social History Smoking status: Never smoker Second hand tobacco smoke exposure: No Alcohol intake: never Substance use: never Substance use type: does not use 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: with family Occupation/Education: occupation 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 Gender identity (if verbalized by the patient): Female Sexual Orientation (if Verbalized by the Patient): Straight or Heterosexual Spiritual care concerns: No Anes - Eval Final PreProcedure Day of Procedure 07/31/22 07:40 Patient weight: obese Heart: regular rate and rhythm Lungs: clear to auscultation Airway: Mallampati scale class II Neurological: alert and oriented Last oral intake: >/= 8 hours ASA classification: II Emergent: no Anesthetic plan: proceed Anesthesia type and monitoring: general LMA and standard monitoring Results Review: All pre-operative results and documents have been reviewed as part of the pre- operative evaluation. Informed Consent: The patient's anesthetic plan and its attendant risks and benefits were discussed with the patient/family/POA. Questions were solicited and answers provided to the satisfaction of the patient/family/POA.
[2022-07-31] MEDS: ceFAZolin 2 GM/D5W 50 ML 2 GM/50 ML BAG IVPB (08:32)
[2022-07-31] MEDS: LIDOCAINE HCL 2% PF INJ 5 ML VIAL 20 ML INFILTRATE (09:07)
--- NOTE | 2022-07-31 09:40 | W.PM.PROC2 ---
Procedure Note - Detailed Date of Procedure 07/31/22 Pre-op Diagnosis 1. Peroneal Tendinopathy left ankle with tenosynovitis 2. Longitudinal split tear of the Peroneus Brevisl tendon left ankle Post-op Diagnosis Same Procedure Performed 1. Primary repair of Peroneus Brevis tendon left ankle 2. Peroneal tenosynovectomy left ankle Surgeon Anshu Rincon JR, DPM Anesthesia General and Local Indications Pain to the lateral left ankle along the retromalleolar region Findings 6cm split tear of Peroneus Brevis tendon left ankle with significant tenosynovitis Description of Procedure Under mild sedation, the patient was brought in to the operating room, placed on the operating table in the lateral decubitus position. A pneumatic thigh tourniquet was placed about the patient's left thigh. Following general anesthesia, local anesthesia was obtained about the proximal leg utilizing 20 mL of local anesthesia of a one to two mix of 2% Lidocaine plain with 0.5% Marcaine plain just inferior and posterior to the neck of the fibula. The foot was then scrubbed, prepped, and draped in the usual aseptic manner. An Esmarch bandage was then used to exsanguinate the patient's foot and ankle and the pneumatic thigh tourniquet was then inflated. An incision was made starting 6 cm proximal to the lateral malleolus extending to the cuboid notch and 5th metatarsal base region. The incision was continued deep down through the subcutaneous tissues using sharp and blunt dissection. All bleeders were ligated and cauterized as necessary. I made a full length peroneal tendon sheath incision visualizing both the peroneus longus and brevis tendons in their entirety. I encountered a 6m area of longitudinal split tearing to the peroneus brevis tendon staring distal to the lateral malleolus extending just proximal to the 5th metatarsal base. I resected the amorphous split tearing and retubularized with 5-0 Prolene in simple interrupted suture fashion technique. Next, I inspected the peroneus longus tendon I noticed a small partial split tear this was resected and the tendon retubularized as well with 5-0 Prolene. I resected the tenosynovitis from within both sheaths of the Peroneal tendons and sent it for gross and histopathology. Next, I reapproximated the peroneal sheath with 2-0 Vicryl and the subcutaneous structures were reapproximated and coapted utilizing 4-0 Vicryl. Next, the skin was reapproximated and coapted utilizing 4-0 Monocryl in running subcuticular suture fashion technique. Upon completion of the procedure, the incisions were all dressed with 1/4 inch Steri Strips, Adaptic, 4x4s, Kerlix, and Coban. The pneumatic thigh tourniquet was then deflated and a prompt hyperemic response was noted to all digits of the affected foot. A posterior splint was then applied. The patient did very well with the procedure and the anesthesia. The patient was transferred to the recovery room with vital signs stable and vascular status intact to all toes of the affected foot. Following a period of postoperative monitoring, the patient will be discharged home on the following written and oral postoperative instructions: 1. The patient should keep the dressing clean, dry, and intact. Use a cast protector bag with showers. 2. The patient will be strictly nonweightbearing with a knee scooter. 3. Patient should ice and elevate the affected foot when at rest. 4. The patient is to contact Dr. Rincon for all postop care and if any problems arise. 5. Prescriptions were written for Percocet 5/325 dispensed 40 to be taken 1 p.o. q.4-6 hours as needed for severe pain. Furthermore, Xarelto 10 mg was also prescribed to be taken starting 24 hours after surgery once daily for 14 days followed by one 325 mg aspirin to prevent DVT. Estimated Blood Loss 1 Pathology Yes Complications No immediate complications Condition Stable Disposition Same day
[2022-07-31] MEDS: fentaNYL CITRATE INJ (*CRX) 100 MCG/2 ML VIAL 25 MCG IV PUSH ×5 (10:16→11:24)
[2022-07-31] MEDS: oxyCODONE HCL (*CRX) 5 MG TAB IR PO (11:25)
== END 2022-07-31 12:12 | disposition home or self-care (01) ==
PROVIDERS: PCP Family Medicine; Visit Provider Podiatrist Foot & Ankle Surgery
PROC: (CPT 27698; principal; 2022-07-31 08:30)
DX: M76.72 Peroneal tendinitis, left leg (principal); M65.862 Other synovitis and tenosynovitis, left lower leg; R12 Heartburn; E66.9 Obesity, unspecified; Z68.36 Body mass index [BMI] 36.0-36.9, adult
CPT/HCPCS: 27658; 88304; A9270; J0690; J1100; J2250; J2405; J2704; J3010; J7120

== ENCOUNTER 2022-08-25 14:28 | Outpatient (CLI) | payer OTHER, SELFPAY ==
--- NOTE | ~2022-08-25 | US_ITS ---
EXAMINATION: US venous doppler [facility] DATE: 08/25/2022 15:01 INDICATION: Left lower limb pain and swelling TECHNIQUE: Grayscale ultrasound images without and with compression and Doppler ultrasound images of the left lower extremity veins were obtained. COMPARISON: None. FINDINGS: The visualized portions of left common femoral vein, profunda (deep) femoral vein, femoral vein, popl iteal vein, peroneal veins, posterior tibial veins, gastrocnemius vein and greater saphenous vein out flow are patent. IMPRESSION: 1. No deep venous thrombosis in the left lower limb. Reviewed, dictated and finalized at location A.
== END 2022-08-25 14:29 | disposition home or self-care (01) ==
PROVIDERS: PCP Family Medicine; Visit Provider Podiatrist Foot & Ankle Surgery
DX: M79.669 Pain in unspecified lower leg (principal); M79.89 Other specified soft tissue disorders
CPT/HCPCS: 93971

== ENCOUNTER 2023-03-23 08:06 | Outpatient (CLI) | payer OTHER, SELFPAY ==
--- NOTE | ~2023-03-23 | CT_ITS ---
EXAMINATION: CT brain wo con DATE: 03/23/2023 08:32 INDICATION: Headache, unspecified. TECHNIQUE: Computed tomography (CT) of the head was performed without intravenous contrast. The mA wa s adjusted according to patient size. Iterative reconstruction technique was employed. The dose-lengt h product was 605.33 mGy-cm. COMPARISON: None FINDINGS: There are scattered areas of low attenuation in the cerebral white matter, which is within normal limits for the patient's age. There is no intracranial hemorrhage, acute infarction, or abnorm al intracranial mass lesion. The ventricles are normal in size. There is mild mucosal thickening in t he ethmoid sinuses. The orbits are normal. The mastoid air cells are normal. IMPRESSION: 1. Normal aging brain. Reviewed, dictated and finalized at location E. 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 Normal aging brain.
== END 2023-03-23 08:07 | disposition home or self-care (01) ==
PROVIDERS: PCP Family Medicine; Visit Provider Physician Assistant
DX: R51.9 Headache, unspecified (principal); H53.9 Unspecified visual disturbance
CPT/HCPCS: 70450